=== PATIENT | female | born 1945 | race Caucasian/White ===

== ENCOUNTER → 2018-03-24 | Outpatient (CLI) | payer MEDICARE | END | disposition home or self-care (01) | LOC: RAH 11:33 | PROVIDERS: ATTEND Physician Assistant Medical | DX: M47.896 Other spondylosis, lumbar region (principal); M16.12 Unilateral primary osteoarthritis, left hip; M48.061 Spinal stenosis, lumbar region without neurogenic claudication | CPT/HCPCS: 72100; 73502 ==

== ENCOUNTER → 2019-12-06 | Outpatient (CLI) | payer MEDICARE | END | disposition home or self-care (01) | LOC: RAH 13:48 | PROVIDERS: ATTEND Family Medicine | DX: M51.27 Other intervertebral disc displacement, lumbosacral region (principal); M48.061 Spinal stenosis, lumbar region without neurogenic claudication | CPT/HCPCS: 72148 ==

== ENCOUNTER → 2020-04-01 | Outpatient (CLI) | payer MEDICARE | END | disposition home or self-care (01) | LOC: RAH 13:32 | PROVIDERS: ATTEND Physical Medicine & Rehabilitation | DX: M43.12 Spondylolisthesis, cervical region (principal); M89.38 Hypertrophy of bone, other site; M54.12 Radiculopathy, cervical region; M48.02 Spinal stenosis, cervical region ==

== ENCOUNTER → 2020-04-28 | Outpatient (CLI) | payer MEDICARE | END | disposition home or self-care (01) | LOC: RAH 12:19 | PROVIDERS: ATTEND Physical Medicine & Rehabilitation | DX: M48.02 Spinal stenosis, cervical region (principal) ==

== ENCOUNTER 2020-07-24 08:45 | Observation (INO) | payer MEDICARE ==
[~2020-07-24] VITALS: Ht 152.4 cm; Wt 41.9 kg
[2020-07-24 09:54] LABS: BASOPHILS % (AUTO) 0.6 % (0.0-5.0); EOSINOPHILS % (AUTO) 2.4 % (0.0-8.0); HEMATOCRIT 38.7 % (36-48); LYMPHOCYTES % (AUTO) 21.4 % (21.0-51.0); MEAN CORPUSCULAR HEMOGLOBIN 29.3 pg (27.0-33.0); MEAN CORPUSCULAR HGB CONC 33.1 g/dL (32.0-36.0); MEAN CORPUSCULAR VOLUME 88.6 fL (79-99); MONOCYTES % (AUTO) 9.2 % (3.0-13.0); PLATELET COUNT (AUTO) 234 K/uL (130-400); RED BLOOD CELL COUNT(AUTO) 4.37 MIL/uL (4.00-5.50); RED CELL DISTRIBUTION WIDTH 13.1 % (11.0-15.5); WHITE BLOOD COUNT (AUTO) 7.8 K/uL (4.8-10.8)
[2020-07-24 10:02] LABS: POTASSIUM 4.9 mmol/L (3.5-5.1)
[2020-07-29 13:38] VITALS: BP 178/92
[2020-07-29] MEDS ORDERED: MAGNESIUM PO (13:53)
[2020-07-29] MEDS ORDERED: FLUT1AER IH (13:53)
[2020-07-29] MEDS ORDERED: SERT50TA12 PO (13:53)
[2020-07-29] MEDS ORDERED: CYAN500T63 PO (13:53)
[2020-07-29] MEDS ORDERED: ZINC50TA64 PO (13:53)
[2020-07-29] MEDS ORDERED: GABA-529 PO (13:53)
[2020-07-29] MEDS ORDERED: CALC600T15 PO (13:53)
[2020-07-29] MEDS ORDERED: TURMERIC PO (13:53)
[2020-07-29] MEDS ORDERED: ASCO100031 PO (13:53)
[2020-07-29] MEDS ORDERED: TYLENOL PM PO (13:53)
[2020-07-29] MEDS ORDERED: VITA400C73 PO (13:53)
[2020-07-29] MEDS ORDERED: CHOL2000 PO (13:53)
[2020-07-29] MEDS ORDERED: MELA10CA2 PO (13:53)
[2020-07-29] MEDS ORDERED: AMLO-258 PO (13:53)
[2020-07-30] VITALS (24 sets, daily range): BP systolic 99–143; BP diastolic 46–84
[2020-07-30] MEDS: CEFAZOLIN SODIUM 1 GM VIAL IV SCH ×2 (06:00→07:45)
[2020-07-30] MEDS ORDERED: LACTATED RINGERS 1000ML 1,000 ML IV ONE (06:14)
[2020-07-30] MEDS ORDERED: DURAMORPH PF1 MG/ML 10ML AMP IV ONE (07:06)
[2020-07-30] MEDS ORDERED: THROMBIN-JMI 20000 UNIT KIT TP ONE (07:06)
[2020-07-30] MEDS ORDERED: CEFAZOLIN SODIUM 1 GM VIAL ONE (07:06)
[2020-07-30] MEDS ORDERED: LIDOCAINE PF 2% 5ML ABBOJECT ONE (07:07)
[2020-07-30] MEDS ORDERED: SUCCINYLCHOLINE CHLORIDE 20 MG/ML 10 ML VIAL ONE ×2 (07:07→08:32)
[2020-07-30] MEDS ORDERED: GLYCOPYRROLATE 1 MG/5 ML SYRINGE ONE (07:08)
[2020-07-30] MEDS ORDERED: MIDAZOLAM HCL 1 MG/ML 2ML VIAL ONE (07:08)
[2020-07-30] MEDS ORDERED: PROPOFOL 10 MG/ML 20ML VIAL IV ONE (07:08)
[2020-07-30] MEDS ORDERED: NEOSTIGMINE 5MG/5ML SYR IV ONE (07:08)
[2020-07-30] MEDS ORDERED: DEXAMETHASONE SOD PHOSPHATE 10MG/ML 1ML VIAL ONE ×2 (07:08→07:14)
[2020-07-30] MEDS ORDERED: ONDANSETRON HCL 4 MG/2 ML VIAL ONE (07:09)
[2020-07-30] MEDS ORDERED: FENTANYL CITRATE PF 50 MCG/1 ML 2ML VIAL ONE ×2 (07:09→08:21)
[2020-07-30] MEDS ORDERED: ROCURONIUM 10MG/1ML SYR 10 MG/ML ML ONE (07:09)
[2020-07-30] MEDS: BUPIVACAINE/EPI/PF 0.25% 30ML VIAL IJ SCH ×2 (07:30→08:10)
[2020-07-30] MEDS ORDERED: EPHEDRINE SULFATE 50 MG/ML AMPULE ONE (07:46)
[2020-07-30] MEDS ORDERED: ARTIFICIAL TEARS 3.5 GM OINTMENT ONE (08:40)
[2020-07-30] MEDS ORDERED: MORPHINE SULFATE 2 MG/ML 1ML SYG IVP PRN (10:45)
[2020-07-30] MEDS: LACTATED RINGERS 1000ML 1,000 ML IV SCH (10:45)
[2020-07-30] MEDS ORDERED: PROMETHAZINE HCL 25 MG/ML 1ML AMPULE IM PRN (10:45)
[2020-07-30] MEDS ORDERED: SODIUM CHLORIDE 0.9% 10 ML VIAL IVP PRN (10:45)
[2020-07-30] MEDS: DEXAMETHASONE SOD PHOSPHATE 4 MG/ML 1ML VIAL IVP SCH ×2 (10:45→17:28)
[2020-07-30] MEDS: CEFAZOLIN SODIUM 1 GM VIAL IVP SCH ×2 (10:45→19:38)
[2020-07-30] MEDS ORDERED: HYDROCODONE/ACETAMINOPHEN 5/325 MG TAB PO PRN (10:45)
--- NOTE | 2020-07-30 11:50 | NUR ---
PROCEDURE REPORT RECEIVED FROM SLOAN MONTESINOS (PACU). PATIENT S/P LUMBAR LAMINECTOMY FOR L4-L5 & L5-S1. DRESSING DRY AND INTACT TO LUMBAR AREA WITH ABA DRAIN INTACT. ABA TO BE COMPRESSED AT 1500. ESCOTO CATHETER IN PLACE. PATIENT STABLE AT THIS TIME.
--- NOTE | 2020-07-30 17:30 | NUR ---
PATIENT WALKED TO BATHROOM AND HALLWAY ASSISTED BY AMIRA RUIZ. PATIENT STABLE AT THIS TIME.
[2020-07-30] MEDS: BUDESONIDE 0.5 MG/2 ML INH IH SCH (18:15)
[2020-07-30] MEDS: ALBUTEROL SULFATE 0.083% 2.5 MG/3 ML INH IH SCH ×2 (18:15→23:42)
[2020-07-30] MEDS ORDERED: MAGNESIUM PO SCH (21:00)
[2020-07-30] MEDS ORDERED: CALCIUM CARBONATE 500 MG TABLET PO SCH (21:00)
[2020-07-30] MEDS ORDERED: **HM** MELATONIN 10MG PO SCH (21:00)
[2020-07-30] MEDS ORDERED: ASCORBIC ACID 500 MG TAB PO SCH (21:00)
[2020-07-30] MEDS ORDERED: AMLODIPINE BESYLATE 5 MG TAB PO SCH (21:00)
[2020-07-30] MEDS ORDERED: SERTRALINE HCL 50 MG TABLET PO SCH (21:00)
[2020-07-30] MEDS ORDERED: TYLENOL PM PO SCH (21:00)
[2020-07-30] MEDS ORDERED: **HM** VIT D3 50MCG PO SCH (21:00)
[2020-07-30] MEDS ORDERED: TURMERIC PO SCH (21:00)
[2020-07-30] MEDS ORDERED: ZINC SULFATE 220 CAPSULE PO SCH (21:00)
[2020-07-30] MEDS ORDERED: GABAPENTIN 100 MG CAPSULE PO SCH ×2 (21:00)
[2020-07-30] MEDS ORDERED: VITAMIN E 400 UNIT CAPSULE PO SCH (21:00)
[2020-07-30] MEDS ORDERED: CYANOCOBALAMIN (VITAMIN B-12) 1,000 MCG TABLET PO SCH (21:00)
--- NOTE | 2020-07-30 22:28 | NUR ---
NOTE PATIENT WALKED IN [place] WITH PRODUCTION ROUSTABOUT ASSISTING. SLIGHT UNSTEADY WITH HER GAIT. TOLERATED WELL.
[2020-07-31] MEDS: LACTATED RINGERS 1000ML 1,000 ML IV SCH (00:05)
[2020-07-31] MEDS: DEXAMETHASONE SOD PHOSPHATE 4 MG/ML 1ML VIAL IVP SCH ×2 (00:28→05:52)
[2020-07-31 04:03] VITALS: BP 109/61
[2020-07-31] MEDS: ALBUTEROL SULFATE 0.083% 2.5 MG/3 ML INH IH SCH (06:47)
[2020-07-31] MEDS: BUDESONIDE 0.5 MG/2 ML INH IH SCH (06:47)
[2020-07-31 08:00] VITALS: BP 128/59
--- NOTE | 2020-07-31 10:30 | NUR ---
Dressing change: Old dressing removed from lumbar incision, 13 intact audie noted. Removed ABA drain, 2 intact audie at drain site. ABA removed with no resistance, tip intact, appears cut, not torn. Measures 11.8 cms. No bleeding noted. Painted incision and drain site with iodine and dressed with sterile non adherent gauze, then secured with medipore tape. Pt tolerated well, voiced no discomforts
--- NOTE | 2020-07-31 10:50 | NUR ---
Discharge instructions given to pt and at bedside. Emphasis on Dr. Carty's discharge instructions regarding incision care, s/s to monitor for, activity/bathing, when to call MD, and when to seek emergency care vs dial 911. Written Rx for toradol given to pt. Educated regarding purpose, route, and frequency of medication as well as side effects and adverse effects. Pt has follow up appt with Dr. Carty on 08/07 @ 8:50 am. Instructed to take staple remover kit (provided) with her to the appt. PIV already removed by primary nurse. All questions addressed. PT and voiced understanding of all instructions. Pt wheeled to front lobby by [facility] [place] transport home via private car. Pt in stable condition at time of discharge.
[2020-07-31] MEDS ORDERED: ALBUTEROL SULFATE 0.083% 2.5 MG/3 ML INH IH SCH (12:00)
--- NOTE | 2020-07-31 14:24 | NUR ---
CHART REVIEWED. SCHEDULED PROCEDURE, FOR DC TODAY, SPOUSE IN ROOM, PT UP AND ABOUT, NO TRIGGERS TO CM , NO CONCERNS VOICED, DETAILED CM ASSESSMENT DEFERRED. Addendum: 07/31/20 at 1428 by YOEL LECHUGA RN CM Amended: Links added.
== END 2020-07-31 11:00 | disposition home or self-care (01) ==
LOC: EDSTATUS 08:45 → DAHIP 07-30 06:00 → 3DH 07-30 12:16
PROVIDERS: ADMIT Neurological Surgery; ATTEND Neurological Surgery
DX: M48.07 Spinal stenosis, lumbosacral region (principal); Z20.828 Contact with and (suspected) exposure to other viral communicable diseases; M54.16 Radiculopathy, lumbar region; M48.061 Spinal stenosis, lumbar region without neurogenic claudication; J45.909 Unspecified asthma, uncomplicated; I10 Essential (primary) hypertension
CPT/HCPCS: 36415; 63047; 63048; 72110; 80048; 82948; 85025; 94640 ×4; 94664; 96374; 96375; 96376; A4215; A4221; A4222; A4223; A4344; A4510; A4600; A4649 ×4; A6260; G0378 ×19; G0379; J0330 ×2; J0690 ×3; J1100 ×5; J2001; J2250; J2274; J2405; J2704; J2710; J3010 ×2; J3490 ×3; J7030; J7120 ×3; U0003

== ENCOUNTER → 2022-12-14 | Outpatient (CLI) | payer MEDICARE ==
[~2022-12-14] MED LIST: AMLO-258 PO; ASCO100031 PO; CALC-1125 PO; CHOL2000 PO; CYAN500T9 PO; FLUT1AER IH; GABA-529 PO; MAGNESIUM PO; MELA10CA2 PO; SERT-439 PO; TURMERIC PO; TYLENOL PM PO; VITA400C73 PO; ZINC50TA64 PO
== END | disposition home or self-care (01) ==
LOC: RAH 14:32
PROVIDERS: ATTEND Internal Medicine Gastroenterology
DX: J44.9 Chronic obstructive pulmonary disease, unspecified (principal); R63.4 Abnormal weight loss
CPT/HCPCS: 71046

== ENCOUNTER 2023-10-02 13:43 | Emergency (ER) | payer MEDICARE ==
[~2023-10-02] VITALS: Ht 152.4 cm; Wt 39.9 kg
[2023-10-02] MEDS ORDERED: IBUP-2070 PO (17:27)
[2023-10-02] MEDS ORDERED: CEPH500T PO (17:27)
[2023-10-02 17:29] VITALS: BP 165/92; PULSE 65; RESP 14; O2SAT 99
[2023-10-02] MEDS ORDERED: TETANUS/DIPHTHERIA TOXOID [ADULT] 0.5 ML VIAL IM ONE (17:30)
[2023-10-02] MEDS ORDERED: HYDROCODONE/ACETAMINOPHEN 5/325 MG TAB PO ONE (17:30)
[2023-10-02] MEDS ORDERED: ONDANSETRON ODT 4MG TAB SL ONE (17:30)
[2023-10-02] MEDS ORDERED: CEPHALEXIN 500 MG CAPSULE PO ONE (18:00)
[2023-10-02] MEDS ORDERED: KETOROLAC 15MG/ML VIAL (15MG/ML) IM ONE (18:00)
== END 2023-10-02 18:04 | disposition home or self-care (01) ==
LOC: EDH 13:43
DX: S61.213A Laceration without foreign body of left middle finger without damage to nail, initial encounter (principal); S60.221A Contusion of right hand, initial encounter; I10 Essential (primary) hypertension; M19.90 Unspecified osteoarthritis, unspecified site; Z79.51 Long term (current) use of inhaled steroids; W23.0XXA Caught, crushed, jammed, or pinched between moving objects, initial encounter; Y93.89 Activity, other specified; Y92.89 Other specified places as the place of occurrence of the external cause; Y99.8 Other external cause status
CPT/HCPCS: 99284; 90714; 73120; 96372; 90471; J1885